=== PATIENT | female | born 1995 | race Caucasian/White ===

== ENCOUNTER 2018-04-07 12:20 | Emergency (ER) | payer OTHER ==
--- NOTE | 2018-04-07 12:56 | UC ---
Ear Complaint HPI - HPI Summary HPI Summary: This patient is a 22 year old F with a chief complaint of bilateral ear pain since this past weekend. The patient is currently having pain rated at a 6/10 and described as an ache. Pt says she has had a sinus infection since Thursday, the pressure has spread from her sinuses to her ears. Sx started Thursday , no rhinorrhea before that, clear mucous, no sore throat, and Hx of sinus infection. Last known sinus infection at the end of october. In the past she has flown and her ears have bothered her for months after. Pt first tried mason-d and it didnt help, she tried sudafed two nights ago, and it helps with the stuffiness but not the pressure. She has also tried saline rinse and flonase spray, which gives mild relief. Patient is allergic to cefprozil. - History of Current Complaint Chief Complaint: UCEar Stated Complaint: SINUS ISSUE EAR PAIN Time Seen by Provider: 04/07/18 12:43 Hx Obtained From: Patient Hx Last Menstrual Period: depo Severity Initially: Moderate Severity Currently: Moderate Pain Intensity: 6 Pain Scale Used: 0-10 Numeric - Allergies/Home Medications Allergies/Adverse Reactions: Allergies Allergy/AdvReac Type Severity Reaction Status Date / Time cefprozil [From Cefzil] Allergy hive Verified 04/07/18 12:39 PMH/Surg Hx/FS Hx/Imm Hx Previously Healthy: No - HX RECURRENT SINUSITIS Respiratory History: Other - Sinus infections Other Respiratory History: . - Surgical History Surgical History: Yes Surgery Procedure, Year, and Place: r knee - Family History Known Family History: Positive: None - Social History Alcohol Use: Occasionally Substance Use Type: None Smoking Status (MU): Never Smoked Tobacco Review of Systems Constitutional: Fever - negative ENT: Sore Throat - negative, Ear Ache - bilateral ear pain, Sinus Congestion, Sinus Pain/Tenderness, Other - positive rhinorrhea All Other Systems Reviewed And Are Negative: Yes Physical Exam - Summary Physical Exam Summary: General: well-appearing, no pain distress Skin: warm, color reflects adequate perfusion, dry Head: normal Eyes: EOMI, NIKO ENT: positive rhinorrhea Neck: supple, nontender Respiratory: CTA, breath sounds present Cardiovascular: RRR Abdomen: soft, nontender Bowel: present Musculoskeletal: normal, strength/ROM intact Neurological: sensory/motor intact, A&O x3 Psychological: affect/mood appropriate Triage Information Reviewed: Yes Vital Signs: Initial Vital Signs Temp 98 F 04/07/18 12:35 Pulse 98 04/07/18 12:35 Resp 16 04/07/18 12:35 BP 103/68 04/07/18 12:35 Pulse Ox 99 04/07/18 12:35 Ear Complaint Course/Dx - Course Course Of Treatment: DISCUSSED VIRAL VERSES BACTERIAL INFECTION AND THE ROLE OF ANTIBIOTICS. THE PATIENT WISHES TO BE ON ANTIBIOTICS AT THIS TIME. - Differential Dx/Diagnosis Provider Diagnoses: SINUSITIS Discharge - Sign-Out/Discharge Documenting (check all that apply): Patient Departure - Discharge Plan Condition: Stable Disposition: HOME Prescriptions: Amoxicillin/Clavulanate TAB* [Augmentin TAB 875*] 875 mg PO BID #20 tab Patient Education Materials: Sinusitis (ED) Referrals: [facility] [Outside] Additional Instructions: FOLLOW UP WITH YOUR DOCTOR IF NOT COMPLETELY IMPROVED. GET RECHECKED FOR ANY WORSENING OF YOUR CONDITION OR QUESTIONS OR CONCERNS. - Billing Disposition and Condition Condition: STABLE Disposition: Home Attestation Statement Scribe Attestation: This is jason Carr documenting for the attending Dr. Kalie MD. User Type: Provider with Scribe Provider Attestation: The documentation recorded by the scribe accurately reflects the service I personally performed and the decisions made by me.
== END 2018-04-07 13:05 | disposition home or self-care (01) ==
LOC: UCEAST 12:20
DX: J32.9 Chronic sinusitis, unspecified (principal); Z88.1 Allergy status to other antibiotic agents
CPT/HCPCS: 99202; G0463